=== PATIENT | male | born 1945 | race Caucasian/White ===

== ENCOUNTER 2019-04-26 11:30 | Outpatient (RCR) | payer MEDICARE, OTHER, SELFPAY ==
[2019-04-19 09:46] VITALS: BP 111/76; PULSE 72; RESP 20; TEMP 37.1; BMI 39.1
--- NOTE | 2019-04-19 13:14 | HP.PCM_ITS ---
(1) Leg swelling Status: Chronic Current Visit: Yes Code(s): M79.89 - Other specified soft tissue disorders (2) Leg edema, left Status: Chronic Current Visit: Yes Code(s): R60.0 - Localized edema (3) Leg edema, right Status: Chronic Current Visit: Yes Code(s): R60.0 - Localized edema (4) Obesity (BMI 30-39.9) Status: Chronic Current Visit: Yes Code(s): E66.9 - Obesity, unspecified (5) Diabetes mellitus Status: Chronic Current Visit: No Qualifiers: Diabetes mellitus type: type 2 Code(s): E11.9 - Type 2 diabetes mellitus without complications (6) Lumbar disc disease Status: Chronic Current Visit: No Code(s): M51.9 - Unspecified thoracic, thoracolumbar and lumbosacral intervertebral disc disorder (7) Inactivity Status: Chronic Current Visit: Yes Code(s): Z72.3 - Lack of physical exercise (8) Hyperlipidemia Status: Chronic Current Visit: No Code(s): E78.5 - Hyperlipidemia, unspecified History of Present Illness Date of Service: 04/19/19 Chief Complaint: Bilateral lower extremity swelling and edema History of Wound: This is a 73-year-old male who presents with a long-standing history of swelling and edema in both lower extremities. The patient has noted swelling and edema for more than several months. He claims to sleep on a flat mattress at night. However, he is not very active, and spends considerable hours each day in an idle sitting position. He denies a history of lower extremity thrombophlebitis. He is a retired truck driver rubbish collector. He is also noted to be obese. Past Medical History Past Medical History: Chronic Problems Leg swelling (Chronic) Leg edema, left (Chronic) Leg edema, right (Chronic) Obesity (BMI 30-39.9) (Chronic) Diabetes mellitus (Chronic) Lumbar disc disease (Chronic) Inactivity (Chronic) Hyperlipidemia (Chronic) Past Medical History: Patient's history is negative for cerebrovascular accident, myocardial infarction, congestive heart failure, hypertension, pulmonary disease, renal disease, and thyroid disease. The patient has a history of diabetes mellitus and hyperlipidemia. Surgical History: - - Patient is undergone lumbar disc surgery x2. He has previously undergone open reduction and internal fixation of a right wrist fracture. He has had several left inguinal hernia repairs and umbilical hernia repairs. The patient has undergone bilateral rotator cuff surgery. Allergies/Adverse Reactions: Allergies morphine Adverse Reaction (Verified 04/19/19 10:15) Other Home Medications: Ambulatory Orders Medication Instructions Recorded Atorvastatin Calcium [Lipitor] 80 mg PO QHS 04/19/19 Citalopram [Celexa] 10 mg PO 04/19/19 Humalog 15 04/19/19 Insulin Glargine,Hum.rec.anlog 45 unit 04/19/19 [Lantus] Lisinopril [Prinivil] 10 mg PO 04/19/19 Metformin HCl 1,000 04/19/19 - Family History Paternal - - The patient's father at the age of 64 with a history of heart disease and hyperlipidemia. The patient's mother at the age of 83 of old age. Social History: Patient is a retired truck driver rubbish collector. He consumes alcoholic beverages occasionally. He does not use tobacco products. He is and lives with his . Lives: Spouse/ Significant Other Smoking Status: Former smoker Tobacco Use: Non-smoker Alcohol: Occasional Drugs: None Review of Systems Constitutional: Denies: Chills, Fever, Weight Change Eyes: Denies: Pain, Vision Change HEENT: Denies: Difficulty Hearing, Difficulty Swallowing, Sinus Congestion Cardiovascular: Denies: Chest Pain, Palpitations Respiratory: Denies: Cough, Shortness of Breath Gastrointestinal: Denies: Diarrhea, Nausea, Vomiting Genitourinary: Denies: Dysuria, Hematuria Endocrine: Denies: Heat/ Cold Intolerance, Polydipsia, Polyuria Hematologic/ Lymphatic: Denies: Easy Bruising, Easy Bleeding - Physical Exam Vital Signs Temp Pulse Resp BP 98.7 F 72 20 H 111/76 04/19/19 09:46 04/19/19 09:46 04/19/19 09:46 04/19/19 09:46 General: Alert, Oriented x3, Cooperative, No apparent distress, Well developed, Well nourished, - - The patient is obese. HEENT: Atraumatic, PERRLA, EOMI, Normocephalic Oral: Moist Mucosa Neck: Supple, No JVD, Negative Carotid Bruits, Negative Hepatojugular Reflux, No Nodes, No Nuchal Rigidity, Trachea Midline Lungs: Clear to auscultation, Normal air movement, No rhonchi, No wheeze, No rales Cardiovascular: Regular rate, Regular Rhythm, Normal S1, Normal S2, No murmurs Abdomen: Soft, Non Tender, Non-Distended, Obese Extremities: No clubbing, No cyanosis, No Calf Tenderness, - - There are no significant skin changes of the lower extremities. No significant varicosities are appreciated. There are no open wounds or ulcerations. There is no sign of infection or cellulitis. However, bilateral lower extremity swelling and edema as noted, with 1+ pitting edema bilaterally. Skin: No rashes Wound Measurements and Assessment WC - Nurse 1 - General Ulcer Measurement Start: 04/19/19 09:40 Freq: Status: Active Protocol: Activity Type Activity Date Activity User E-Sign Co-Sign Detail Recorded Client Recorded Date Recorded By Document 04/19/19 09:46 DL [id number] 04/19/19 10:10 DL 04/19/19 09:46 Wound Center Nurse 1 [Edema Assessment] -Right Calf (cm) 41 -Right Ankle (cm) 27.5 -Left Calf (cm) 42.5 -Left Ankle (cm) 31 Musculoskeletal: No Muscle Wasting Neurological: Cranial nerves II-XII grossly intact, Neuro grossly intact Psych/Mental Status: Normal Affect, Appropriate, Alert and oriented to time, place, person, mood and affect Debridement Note No debridement was completed today - There are no open wounds or ulcerations. Assessment/Plan Active Problems Leg swelling (Chronic) Leg edema, left (Chronic) Leg edema, right (Chronic) Obesity (BMI 30-39.9) (Chronic) Inactivity (Chronic) Assessment: This is a 73-year-old male who presents with chronic swelling and edema in both lower extremities. There are no open ulcerations or wounds. There are no significant skin changes. It appears as though his lower extremity swelling and edema are lifestyle?related. Patient is obese. He is relatively inactive. He spends a good deal of time each day in an idle sitting position. It appears as though he suffers from dependent edema in his lower extremities as result of recent habits. Plan: We are to implement conservative treatment measures relative to the patient's lower extremity swelling and edema. The patient has been encouraged to continue sleeping on a flat mattress at night. Leg elevation has been encouraged even during daytime hours. His lower extremities are to be elevated to heart level, or higher. Leg elevation is to be accomplished as much as possible. The patient has been advised to refrain from prolonged idle sitting and standing. Activity has been encouraged. Weight loss has also been encouraged. We are to implement compression to the lower extremities by means of SurePress wraps, applied on a daily basis bilaterally. The patient has been instructed in the appropriate leads of applying the SurePress compression wraps. It is anticipated that the SurePress compression wraps will be utilized for several weeks, following which a more long-term beads of compression will be implemented, either by means of graduated compression stockings of at least 20 to 30 mmHg compression, or Velcro compression garments. The patient is also to be scheduled for a noninvasive lower extremity arterial study to assess arterial circulation of the lower extremities, given that compression is anticipated as a means of controlling his swelling and edema. He will return in 1 week for reassessment. Influenza vaccine was not administered today. The patient is not a smoker. Patient stands 5 feet 11 inches tall. He weighs 280 pounds. His BMI is 39.1, which places him in a class II obesity category. Weight loss has been recommended. Collaboration with his primary care physician has been advised in this regard. The patient has been advised to optimize his glycemic control.
--- NOTE | 2019-04-26 08:21 | ART_ITS ---
Reason For Study: Edema Procedure A bilateral lower extremity continuous wave Doppler with analog waveform analysis,segmental pressures,and ankle brachial indexes without exercise. Left Segmental Pressures Left brachial= 124mmHg. Left posterior tibial artery = 155mmHg. Left dorsalis pedis artery = 173mmHg. The left dorsalis pedis waveforms are triphasic. The left posterior tibial artery waveforms are triphasic. Right Segmental Pressures Right brachial= 132mmHg. Right posterior tibial artery = 165mmHg. Right dorsalis pedis artery = 160mmHg. The right dorsalis pedis waveforms are triphasic. The right posterior tibial artery waveforms are triphasic. Indices The right ankle brachial index by the dorsalis pedis is 1.21. The right ankle brachial index by the posterior tibial artery is 1.25. The left ankle brachial index by the dorsalis pedis is 1.31. The left ankle brachial index by the posterior tibial artery is 1.17. Interpretation Summary Triphasic Doppler waveforms are noted at ankle level bilaterally. Pulse-volume recordings appear satisfactory at all levels bilaterally. Resting ankle-brachial indices are normal bilaterally. There is no evidence of significant arterial occlusive disease in the lower extremities bilaterally. Ordering Physician: Myles Escobar Performed By: Kera Gilbert RVT
[2019-04-26 10:13] VITALS: BP 131/61; PULSE 68; RESP 16; TEMP 36.4; BMI 39.1
--- NOTE | 2019-04-26 11:47 | HP.PCM_ITS ---
(1) Leg swelling Status: Chronic Current Visit: Yes Code(s): M79.89 - Other specified soft tissue disorders (2) Leg edema, left Status: Chronic Current Visit: Yes Code(s): R60.0 - Localized edema (3) Leg edema, right Status: Chronic Current Visit: Yes Code(s): R60.0 - Localized edema (4) Obesity (BMI 30-39.9) Status: Chronic Current Visit: Yes Code(s): E66.9 - Obesity, unspecified (5) Diabetes mellitus Status: Chronic Current Visit: No Qualifiers: Diabetes mellitus type: type 2 Code(s): E11.9 - Type 2 diabetes mellitus without complications (6) Lumbar disc disease Status: Chronic Current Visit: No Code(s): M51.9 - Unspecified thoracic, thoracolumbar and lumbosacral intervertebral disc disorder (7) Inactivity Status: Chronic Current Visit: Yes Code(s): Z72.3 - Lack of physical exercise (8) Hyperlipidemia Status: Chronic Current Visit: No Code(s): E78.5 - Hyperlipidemia, unspecified History of Present Illness Date of Service: 04/26/19 Chief Complaint: Bilateral lower extremity swelling and edema History of Wound: This is a 73-year-old male who presents with a long-standing history of swelling and edema in both lower extremities. The patient has noted swelling and edema for more than several months. He claims to sleep on a flat mattress at night. However, he is not very active, and spends considerable hours each day in an idle sitting position. He denies a history of lower extremity thrombophlebitis. He is a retired diesel truck mechanic. He is also noted to be obese. Past Medical History Past Medical History: Chronic Problems Leg swelling (Chronic) Leg edema, left (Chronic) Leg edema, right (Chronic) Obesity (BMI 30-39.9) (Chronic) Diabetes mellitus (Chronic) Lumbar disc disease (Chronic) Inactivity (Chronic) Hyperlipidemia (Chronic) Surgical History: - - Patient is undergone lumbar disc surgery x2. He has previously undergone open reduction and internal fixation of a right wrist fracture. He has had several left inguinal hernia repairs and umbilical hernia repairs. The patient has undergone bilateral rotator cuff surgery. Allergies/Adverse Reactions: Allergies morphine Adverse Reaction (Verified 04/19/19 10:15) Other Home Medications: Ambulatory Orders Medication Instructions Recorded Atorvastatin Calcium [Lipitor] 80 mg PO QHS 04/19/19 Citalopram [Celexa] 10 mg PO 04/19/19 Humalog 15 04/19/19 Insulin Glargine,Hum.rec.anlog 45 unit 04/19/19 [Lantus] Lisinopril [Prinivil] 10 mg PO 04/19/19 Metformin HCl 1,000 04/19/19 - Family History Paternal - - The patient's father at the age of 64 with a history of heart disease and hyperlipidemia. The patient's mother at the age of 83 of old age. Lives: Spouse/ Significant Other Smoking Status: Former smoker Tobacco Use: Non-smoker Alcohol: Occasional Drugs: None Review of Systems Constitutional: Denies: Chills, Fever, Weight Change Eyes: Denies: Pain, Vision Change HEENT: Denies: Difficulty Hearing, Difficulty Swallowing, Sinus Congestion Cardiovascular: Denies: Chest Pain, Palpitations Respiratory: Denies: Cough, Shortness of Breath Gastrointestinal: Denies: Diarrhea, Nausea, Vomiting Genitourinary: Denies: Dysuria, Hematuria Endocrine: Denies: Heat/ Cold Intolerance, Polydipsia, Polyuria Hematologic/ Lymphatic: Denies: Easy Bruising, Easy Bleeding - Physical Exam Vital Signs Temp Pulse Resp BP 97.5 F L 68 16 131/61 H 04/26/19 10:13 04/26/19 10:13 04/26/19 10:13 04/26/19 10:13 General: Alert, Oriented x3, Cooperative, No apparent distress, Well developed, Well nourished HEENT: Atraumatic, PERRLA, EOMI, Normocephalic Oral: Moist Mucosa Neck: No JVD Lungs: Normal air movement Abdomen: Non-Distended Extremities: No clubbing, No cyanosis, No Calf Tenderness, - - There are no open wounds or ulcerations in the patient's lower extremities. There are no significant skin changes on either side. Swelling and edema persist in the lower extremities. It is more pronounced in the left lower extremity. However, it is markedly improved over previous weeks. Skin: No rashes, No breakdown Wound Measurements and Assessment WC - Nurse 1 - General Ulcer Measurement Start: 04/19/19 09:40 Freq: Status: Active Protocol: Activity Type Activity Date Activity User E-Sign Co-Sign Detail Recorded Client Recorded Date Recorded By Document 04/26/19 10:13 [facility] [id number] 04/26/19 10:16 [facility] 04/26/19 10:13 Wound Center Nurse 1 [Edema Assessment] -Lower Limb Edema Present Yes -Right Calf (cm) 40.8 -Right Ankle (cm) 26.4 -Left Calf (cm) 41.3 -Left Ankle (cm) 29.3 Musculoskeletal: No Muscle Wasting Neurological: Cranial nerves II-XII grossly intact, Neuro grossly intact Psych/Mental Status: Normal Affect, Appropriate, Alert and oriented to time, place, person, mood and affect Debridement Note No debridement was completed today - There are no open wounds or ulcerations. Assessment/Plan Active Problems Leg swelling (Chronic) Leg edema, left (Chronic) Leg edema, right (Chronic) Obesity (BMI 30-39.9) (Chronic) Inactivity (Chronic) Assessment: This is a 73-year-old male who presented with chronic swelling and edema in both lower extremities. There are no open ulcerations or wounds. There are no significant skin changes. It appears as though his lower extremity swelling and edema are lifestyle?related. Patient is obese. He is relatively inactive. He spends a good deal of time each day in an idle sitting position. It appears as though he suffers from dependent edema in his lower extremities as result of recent habits. A noninvasive lower extremity arterial study was performed earlier today, which was normal. There is no evidence of significant arterial occlusive disease in the lower extremities bilaterally. Plan: We are to continue conservative treatment measures relative to the patient's lower extremity swelling and edema. The patient has been encouraged to continue sleeping on a flat mattress at night. Leg elevation has been encouraged even during daytime hours. His lower extremities are to be elevated to heart level, or higher. Leg elevation is to be accomplished as much as possible. The patient has been advised to refrain from prolonged idle sitting and standing. Activity has been encouraged. Weight loss has also been encouraged. We are to continue compression to the lower extremities by means of SurePress wraps, applied on a daily basis bilaterally. The patient has been instructed in the appropriate leads of applying the SurePress compression wraps. The patient has been provided a prescription for graduated compression stockings of 20 to 30mmHg compression, knee-high length. He is to be measured and fitted for these stockings within the next week. They will then be worn daily. The patient will return return in 2 weeks for reassessment. It is anticipated that he will be discharged in the near future, if he continues to respond to conservative measures. It has been noted that the swelling and edema is more severe in the left lower extremity, which raises a question of possible venous outflow obstruction in the form of May-Thurner syndrome. The patient has no history of thrombophlebitis in either lower extremity. Therefore, we will forego a more extensive evaluation at this time, but will consider such in the future should further problems arise. Influenza vaccine was not administered today. The patient is not a smoker. Patient stands 5 feet 11 inches tall. He weighs 280 pounds. His BMI is 39.1, which places him in a class II obesity category. Weight loss has been recommended. Collaboration with his primary care physician has been advised in this regard. The patient has been advised to optimize his glycemic control.
== END 2019-05-07 23:59 ==
LOC: WC 11:30
PROVIDERS: Referring Provider Surgery; Visit Provider Surgery
DX: M79.89 Other specified soft tissue disorders (principal); E66.9 Obesity, unspecified; Z68.39 Body mass index [BMI] 39.0-39.9, adult; Z71.3 Dietary counseling and surveillance; R60.0 Localized edema; I87.2 Venous insufficiency (chronic) (peripheral); E11.51 Type 2 diabetes mellitus with diabetic peripheral angiopathy without gangrene; M51.9 Unspecified thoracic, thoracolumbar and lumbosacral intervertebral disc disorder; E78.5 Hyperlipidemia, unspecified; Z87.891 Personal history of nicotine dependence
CPT/HCPCS: 93923; 99203; 99212; G0463

== ENCOUNTER 2019-05-09 12:54 | Outpatient (RCR) | payer MEDICARE, OTHER, SELFPAY ==
[2019-05-08 01:15] VITALS: BP 131/61; PULSE 68; RESP 16; TEMP 36.4
[2019-05-09 14:45] VITALS: BP 131/44; PULSE 76; RESP 16; TEMP 36.3; BMI 39.1
--- NOTE | 2019-05-09 15:52 | PCM.WC.HP ---
(1) Leg swelling Status: Chronic Current Visit: Yes Code(s): M79.89 - Other specified soft tissue disorders (2) Leg edema, left Status: Chronic Current Visit: Yes Code(s): R60.0 - Localized edema (3) Leg edema, right Status: Chronic Current Visit: Yes Code(s): R60.0 - Localized edema (4) Obesity (BMI 30-39.9) Status: Chronic Current Visit: Yes Code(s): E66.9 - Obesity, unspecified (5) Diabetes mellitus Status: Chronic Current Visit: No Code(s): E11.9 - Type 2 diabetes mellitus without complications (6) Lumbar disc disease Status: Chronic Current Visit: No Code(s): M51.9 - Unspecified thoracic, thoracolumbar and lumbosacral intervertebral disc disorder (7) Inactivity Status: Chronic Current Visit: Yes Code(s): Z72.3 - Lack of physical exercise (8) Hyperlipidemia Status: Chronic Current Visit: No Code(s): E78.5 - Hyperlipidemia, unspecified History of Present Illness Date of Service: 05/09/19 Chief Complaint: Bilateral lower extremity swelling and edema History of Wound: This is a 73-year-old male who presents with a long-standing history of swelling and edema in both lower extremities. The patient has noted swelling and edema for more than several months. He claims to sleep on a flat mattress at night. However, he is not very active, and spends considerable hours each day in an idle sitting position. He denies a history of lower extremity thrombophlebitis. He is a retired cdl team truck driver. He is also noted to be obese. Past Medical History Past Medical History: Chronic Problems Leg swelling (Chronic) Leg edema, left (Chronic) Leg edema, right (Chronic) Obesity (BMI 30-39.9) (Chronic) Diabetes mellitus (Chronic) Lumbar disc disease (Chronic) Inactivity (Chronic) Hyperlipidemia (Chronic) Surgical History: - - Patient is undergone lumbar disc surgery x2. He has previously undergone open reduction and internal fixation of a right wrist fracture. He has had several left inguinal hernia repairs and umbilical hernia repairs. The patient has undergone bilateral rotator cuff surgery. Allergies/Adverse Reactions: Allergies morphine Adverse Reaction (Verified 04/19/19 10:15) Other Home Medications: Ambulatory Orders Medication Instructions Recorded Atorvastatin Calcium [Lipitor] 80 mg PO QHS 04/19/19 Citalopram [Celexa] 10 mg PO 04/19/19 Humalog 15 04/19/19 Insulin Glargine,Hum.rec.anlog 45 unit 04/19/19 [Lantus] Lisinopril [Prinivil] 10 mg PO 04/19/19 Metformin HCl 1,000 04/19/19 - Family History Paternal - - The patient's father at the age of 64 with a history of heart disease and hyperlipidemia. The patient's mother at the age of 83 of old age. Smoking Status: Former smoker Tobacco Use: Non-smoker Review of Systems Constitutional: Denies: Chills, Fever, Weight Change Eyes: Denies: Pain, Vision Change HEENT: Denies: Difficulty Hearing, Difficulty Swallowing, Sinus Congestion Cardiovascular: Denies: Chest Pain, Palpitations Respiratory: Denies: Cough, Shortness of Breath Gastrointestinal: Denies: Diarrhea, Nausea, Vomiting Genitourinary: Denies: Dysuria, Hematuria Endocrine: Denies: Heat/ Cold Intolerance, Polydipsia, Polyuria Hematologic/ Lymphatic: Denies: Easy Bruising, Easy Bleeding - Physical Exam Vital Signs Temp Pulse Resp BP 97.3 F L 76 16 131/44 H 05/09/19 14:45 05/09/19 14:45 05/09/19 14:45 05/09/19 14:45 General: Alert, Oriented x3, Cooperative, No apparent distress, Well developed, Well nourished HEENT: Atraumatic, PERRLA, EOMI, Normocephalic Oral: Moist Mucosa Neck: No JVD Lungs: Normal air movement Abdomen: Non-Distended Extremities: No clubbing, No cyanosis, No Calf Tenderness, - - There is no significant swelling or edema in the right lower extremity. Only slight swelling and edema is noted in the left lower extremity. There are no significant skin changes in either lower extremity. There are no open wounds or ulcerations on either side. Circumference measurements are documented elsewhere. Skin: No rashes, No breakdown Wound Measurements and Assessment WC - Nurse 1 - General Ulcer Measurement Start: 05/09/19 14:45 Freq: Status: Active Protocol: Activity Type Activity Date Activity User E-Sign Co-Sign Detail Recorded Client Recorded Date Recorded By Document 05/09/19 14:45 MW [id number] 05/09/19 14:54 MW 05/09/19 14:45 Wound Center Nurse 1 [Edema Assessment] -Lower Limb Edema Present Yes -Right Calf (cm) 39.5 -Right Ankle (cm) 25.5 -Left Calf (cm) 42.5 -Left Ankle (cm) 30.0 Musculoskeletal: No Muscle Wasting Neurological: Cranial nerves II-XII grossly intact, Neuro grossly intact Psych/Mental Status: Normal Affect, Appropriate, Alert and oriented to time, place, person, mood and affect Debridement Note No debridement was completed today - There are no open wounds or ulcerations Assessment/Plan Active Problems Leg swelling (Chronic) Leg edema, left (Chronic) Leg edema, right (Chronic) Obesity (BMI 30-39.9) (Chronic) Inactivity (Chronic) Assessment: This is a 73-year-old male who presented with chronic swelling and edema in both lower extremities. There are no open ulcerations or wounds. There are no significant skin changes. It appears as though his lower extremity swelling and edema are lifestyle?related. Patient is obese. He is relatively inactive. He spends a good deal of time each day in an idle sitting position. It appears as though he suffers from dependent edema in his lower extremities as result of recent habits. A noninvasive lower extremity arterial study was performed, which was normal. There is no evidence of significant arterial occlusive disease in the lower extremities bilaterally. Plan: We are to continue conservative treatment measures relative to the patient's lower extremity swelling and edema. The patient has been encouraged to continue sleeping on a flat mattress at night. Leg elevation has been encouraged even during daytime hours. His lower extremities are to be elevated to heart level, or higher. Leg elevation is to be accomplished as much as possible. The patient has been advised to refrain from prolonged idle sitting and standing. Activity has been encouraged. Weight loss has also been encouraged. Graduated compression stockings of 20 to 30 mmHg compression have been prescribed, and the patient has been measured and fitted at [facility], and awaits receipt of his compression stockings. Once obtained, the patient will wear these daily. The patient will return in 2 weeks for reassessment. It is anticipated that he will be discharged in the near future, if he continues to respond to conservative measures. Influenza vaccine was not administered today. The patient is not a smoker. Patient stands 5 feet 11 inches tall. He weighs 280 pounds. His BMI is 39.1, which places him in a class II obesity category. Weight loss has been recommended. Collaboration with his primary care physician has been advised in this regard. The patient has been advised to optimize his glycemic control.
== END 2019-06-07 23:59 ==
LOC: WC 12:54
PROVIDERS: Referring Provider Surgery; Visit Provider Surgery
DX: M79.89 Other specified soft tissue disorders (principal); E66.9 Obesity, unspecified; Z68.39 Body mass index [BMI] 39.0-39.9, adult; Z71.3 Dietary counseling and surveillance; R60.0 Localized edema; E11.9 Type 2 diabetes mellitus without complications; E78.5 Hyperlipidemia, unspecified; Z79.4 Long term (current) use of insulin; Z79.899 Other long term (current) drug therapy; Z87.891 Personal history of nicotine dependence
CPT/HCPCS: 99212; G0463